=== PATIENT | male | born 1990 | race American Indian/Alaskan Native ===

== ENCOUNTER 2021-02-12 02:03 | Emergency (ER) | payer SELFPAY ==
[2021-02-12 02:15] VITALS: BP 148/80
--- NOTE | 2021-02-12 03:19 | Emergency Department Report ---
ED Extremity Problem HPI - General Chief complaint: Extremity Injury, Lower Stated complaint: FEET AND BACK PAIN Time Seen by Provider: 02/12/21 02:34 Source: patient Mode of arrival: Ambulatory Limitations: No Limitations - History of Present Illness Initial comments: 30-year-old -[place] male presents to to the emergency room for bilateral foot pain that is been going on for years. Patient also reports painful in his back. Patient denies any trauma. He states that he has been taken ibuprofen last dose was over a week ago. Denies any dysuria no saddle paresthesias, no urinary or bowel incontinent. Patient does endorse that he walks a lot and sits a lot. Patient states he has had surgery on both of his feet when he was in [place]. Complaint: extremity pain Onset/Timin -: year(s) Location: bilateral lower extremity History of Same: Yes (Feet) -: Yes myalgia, Yes arthralgia Severity scale (0 -10): 9 Quality: sharp Consistency: constant Improves with: rest Worsens with: weight bearing, walking, palpation Associated Symptoms: denies other symptoms - Related Data Previous Rx's Medication Instructions Recorded Last Taken Type Diclofenac Sodium 50 mg PO Q8H PRN #21 tablet. 02/12/21 Unknown Rx Allergies Allergy/AdvReac Type Severity Reaction Status Date / Time acetaminophen Allergy Unknown Verified 02/12/21 02:12 [From Tylenol PM] diphenhydramine Allergy Unknown Verified 02/12/21 02:12 [From Tylenol PM] ED Review of Systems ROS: Stated complaint: FEET AND BACK PAIN Other details as noted in HPI Comment: All other systems reviewed and negative ED Past Medical Hx - Past Medical History Previous Medical History?: No - Surgical History Past Surgical History?: Yes Hx Pacemaker: Yes Additional Surgical History: bilateral foot surgery - Social History Smoking Status: Unknown if ever smoked Substance Use Type: Cocaine, Heroin - Medications Home Medications: Home Medications Medication Instructions Recorded Confirmed Last Taken Type Diclofenac Sodium 50 mg PO Q8H PRN #21 tablet. 02/12/21 Unknown Rx ED Physical Exam - General Limitations: No Limitations General appearance: alert, in no apparent distress - Head Head exam: Present: atraumatic, normocephalic - Eye Eye exam: Present: normal appearance - ENT ENT exam: Present: normal external ear exam - Neck Neck exam: Present: normal inspection, full ROM - Respiratory Respiratory exam: Absent: accessory muscle use - Cardiovascular Cardiovascular Exam: Present: regular rate - Extremities Exam Extremities exam: Present: full ROM, other (Bilateral feet with callus that are tender to touch) - Back Exam Back exam: Present: full ROM - Neurological Exam Neurological exam: Present: alert, oriented X3, normal gait - Psychiatric Psychiatric exam: Present: normal affect, normal mood - Skin Skin exam: Present: warm, dry, intact, normal color. Absent: rash ED Course Vital Signs 02/12/21 02:14 Temperature 98.7 F Pulse Rate 93 H Respiratory 18 Rate Blood Pressure 148/80 O2 Sat by Pulse 97 Oximetry ED Medical Decision Making - Medical Decision Making 30-year-old -Australian male presents to to the emergency room for bilateral foot pain that is been going on for years. Patient also reports painful in his back. Patient denies any trauma. He states that he has been taken ibuprofen last dose was over a week ago. Denies any dysuria no saddle paresthesias, no urinary or bowel incontinent. Patient does endorse that he walks a lot and sits a lot. Patient states he has had surgery on both of his feet when he was in [place]. Patient has calluses on both feet right at the [facility] to podiatry Critical care attestation.: If time is entered above; I have spent that time in minutes in the direct care of this critically ill patient, excluding procedure time. ED Disposition Clinical Impression: Callus of foot Disposition: DC-01 TO HOME OR SELFCARE Is pt being admited?: No Does the pt Need Aspirin: No Condition: Stable Instructions: Corns and Calluses Additional Instructions: Please take pain medication as prescribed. Increase your fluid intake. Is very important that you follow-up with a filler shredder as you have calluses on both of your feet. I have placed Dr. Ly who is a filler shredder on your discharge summary. Prescriptions: Diclofenac Sodium 50 mg PO Q8H PRN #21 tablet.dr JOHNSON Reason: Pain , Severe (7-10) Referrals: RITA LY DPM [Staff Physician] - 3-5 Days Time of Disposition: 03:25
== END 2021-02-12 03:30 | disposition home or self-care (01) ==
LOC: ED 02:03
DX: L84 Corns and callosities (principal); Z98.890 Other specified postprocedural states; Z79.891 Long term (current) use of opiate analgesic; Z88.6 Allergy status to analgesic agent
CPT/HCPCS: 99282

== ENCOUNTER 2021-03-09 23:00 | Emergency (ER) | payer SELFPAY ==
[2021-03-10 01:14] VITALS: BP 150/80
--- NOTE | 2021-03-10 10:13 | Electrocardiograph Report ---
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
== END 2021-03-10 02:11 | disposition left against medical advice (07) ==
LOC: ED 23:00
DX: R07.9 Chest pain, unspecified (principal); Z53.21 Procedure and treatment not carried out due to patient leaving prior to being seen by health care provider
CPT/HCPCS: 93005

== ENCOUNTER 2021-08-26 11:16 | Outpatient (CLI) | payer OTHER ==
--- NOTE | 2021-08-26 13:20 | XRay Report ---
RIGHT FOOT 3 VIEWS INDICATION / CLINICAL INFORMATION: PAIN IN RIGHT FOOT. COMPARISON: None available. FINDINGS: BONES / JOINT(S): There is an osteotomy involving the first metatarsal head medially. A metallic scre w overlies the distal first metatarsal. There are mild degenerative changes involving the first metat arsophalangeal joint. There are also degenerative changes involving the PIP joint of the second toe.. There is a small to moderate plantar calcaneal spur. I see no evidence of acute fracture, subluxatio n or destructive lesion. SOFT TISSUES: No significant abnormality. ADDITIONAL FINDINGS: None. Signer Name: Bk Mcgarry MD Signed: 08/26/2021 1:16 PM Workstation Name: [id number]
== END 2021-08-26 11:17 | disposition home or self-care (01) ==
LOC: XRAY 11:16
PROVIDERS: ATTEND Internal Medicine
DX: M19.071 Primary osteoarthritis, right ankle and foot (principal); M77.31 Calcaneal spur, right foot